=== PATIENT | female | born 1990 | race African-American/Black ===

== ENCOUNTER 2016-04-17 07:44 | Emergency (ER) | payer SELFPAY ==
[~2016-04-17] VITALS: Ht 162.6 cm; Wt 102.1 kg
[2016-04-17] MEDS ORDERED: ONDANSETRON ODT 4 MG TAB.RAPDIS PO ONE (08:30)
--- NOTE | 2016-04-17 08:43 | PHYS DOC ---
Adult General Chief Complaint Chief Complaint: ABDOMINAL PAIN HPI HPI Patient is a 25 year old female with no significant medical history who presents today with nausea vomiting diarrhea and generalized abdominal pain. Patient states this began 2 days ago. She states her boss will not give her allow her to take some time off to get well. She states she works at [employer]. She was in the room taking Yumbers off herself when I walked in. Review of Systems Review of Systems Constitutional: Denies fever or chills [] Eyes: Denies change in visual acuity, redness, or eye pain [] HENT: Denies nasal congestion or sore throat [] Respiratory: Denies cough or shortness of breath [] Cardiovascular: No additional information not addressed in HPI [] GI: generalized abdominal pain, nausea, vomiting,diarrhea [] : Denies dysuria or hematuria [] Musculoskeletal: Denies back pain or joint pain [] Integument: Denies rash or skin lesions [] Neurologic: Denies headache, focal weakness or sensory changes [] Endocrine: Denies polyuria or polydipsia [] Current Medications Current Medications Current Medications Medications (Trade) Dose Ordered Sig/Moises Start Time Stop Time Status Last Admin Dose Admin Ondansetron HCl (Zofran Odt) 4 mg 1X ONCE 04/17/16 08:30 04/17/16 08:48 DC 04/17/16 08:51 4 MG Allergies Allergies Allergies Coded Allergies Type Severity Reaction Last Updated Verified No Known Drug Allergies 04/17/16 No Physical Exam Physical Exam Constitutional: Well developed, well nourished, no acute distress, non-toxic appearance. [] HENT: Normocephalic, atraumatic, bilateral external ears normal, oropharynx moist, no oral exudates, nose normal. [] Eyes: PERRLA, EOMI, conjunctiva normal, no discharge. [] Neck: Normal range of motion, no tenderness, supple, no stridor. [] Cardiovascular:Heart rate regular rhythm, no murmur [] Lungs & Thorax: Bilateral breath sounds clear to auscultation [] Abdomen: Bowel sounds normal, soft, no tenderness, no masses, no pulsatile masses. [] Skin: Warm, dry, no erythema, no rash. [] Back: No tenderness, no CVA tenderness. [] Extremities: No tenderness, no cyanosis, no clubbing, ROM intact, no edema. [] Neurologic: Alert and oriented X 3, normal motor function, normal sensory function, no focal deficits noted. [] Psychologic: Affect normal, judgement normal, mood normal. [] Current Patient Data Vital Signs Vital Signs Date Time Temp Pulse Resp B/P Pulse Ox O2 Delivery O2 Flow Rate FiO2 04/17/16 08:44 97.7 74 16 174/68 98 Room Air 97.7 Lab Values Laboratory Tests Test 04/17/16 08:15 Urine Collection Type Void Urine Color Soledad Urine Clarity Clear Urine pH 6.0 Urine Specific [place] >=1.030 Urine Protein Negativemg/dL (NEG-TRACE) Urine Glucose (UA) Negativemg/dL (NEG) Urine Ketones (Stick) >=80mg/dL (NEG) Urine Blood Negative (NEG) Urine Nitrite Negative (NEG) Urine Bilirubin Small (NEG) Urine Urobilinogen Dipstick 1.0mg/dL (0.2 mg/dL) Urine Leukocyte Esterase Negative (NEG) Urine RBC Rare/HPF (0-2) Urine WBC Occ/HPF (0-4) Urine Squamous Epithelial Cells Few/LPF Urine Bacteria Few/HPF (0-FEW) Urine Mucus Mod/LPF EKG EKG [] Radiology/Procedures Radiology/Procedures [] Course & Med Decision Making Course & Med Decision Making Pertinent Labs and Imaging studies reviewed. (See chart for details) Patient is in the ED with complaints of vomiting and diarrhea. She was also concerned she could be , negative urine hCG, urine negative for UTI, Urine shows signs of dehydration. I went to give patient results, I could not find her, I highly suspect she has eloped. Dragon Disclaimer Dragon Disclaimer This electronic medical record was generated, in whole or in part, using a voice recognition dictation system. Departure Departure Impression: Primary Impression: Vomiting and diarrhea Disposition: 01 HOME, SELF-CARE Condition: STABLE Referrals: COLLIN FREEMAN MD see your doctor in one week Patient Instructions: Diarrhea, Nausea and Vomiting Additional Instructions: You were seen for vomiting and diarrhea. This is a viral illness typically. Push fluids. Maintain good hand hygiene, take the prescribed medicine as needed. Follow-up with your doctor in one week. Scripts Promethazine Hcl 25 Mg Tablet1 Tab PO PRN Q6HRS #20 TAB Prov:MUTUNGA,MAGALIS BOTTOM SPRAYER 04/17/16 MAGALIS WAYNE APRN Apr 17, 2016 08:43
[2016-04-17 08:44] VITALS: BP 174/68
[2016-04-17 08:46] LABS: BILIRUBIN,URINE SMALL (NEG); GLUCOSE,URINE NEGATIVE (NEG); NITRITE,URINE NEGATIVE (NEG); PROTEIN,URINE NEGATIVE (NEG-TRACE)
[2016-04-17 09:10] LABS: BACTERIA,URINE FEW /HPF (0-FEW); RBC,URINE RARE /HPF (0-2); SQUAMOUS EPITHELIAL CELL,UR FEW /LPF; WBC,URINE OCC /HPF (0-4)
[2016-04-17] MEDS ORDERED: PROM25TA10 PO (10:08)
== END 2016-04-17 10:15 | disposition home or self-care (01) ==
LOC: ER 09:07
DX: R11.2 Nausea with vomiting, unspecified (principal); R19.7 Diarrhea, unspecified
CPT/HCPCS: 81001; 81025; 99283; Q0162

== ENCOUNTER 2016-04-19 08:56 | Emergency (ER) | payer SELFPAY ==
[~2016-04-19] VITALS: Ht 162.6 cm; Wt 102.1 kg
[~2016-04-19 08:56] MED LIST: PROM25TA10 PO
[2016-04-19 08:57] VITALS: BP 101/53
--- NOTE | 2016-04-19 09:42 | PHYS DOC ---
Past Medical History Past Medical History: No Pertinent History Past Surgical History: No Surgical History Alcohol Use: None Drug Use: None Adult General Chief Complaint Chief Complaint: CHEST PAIN HPI HPI Patient is a 25 year old female presents emergency room via EMS transport with complaint of left-sided chest pain that began at approximately 845 this morning. Patient states that she just had a conversation with her employer about her status or returning to work after being off for nausea, vomiting and diarrhea. Patient states that she was informed by her boss that she may lose her job if she doesn't return to work for at least a work note. Approximate 5 minutes after that conversation, while watching a movie, she began to experience his pain. Patient states of the chest pain lasted about 10-15 minutes. She reported the pain was nonradiating. She denies any shortness of breath, nausea or vomiting. She denies any sweats or chills. Patient herself denies any history of heart or lung disease. She denies any history of heart or lung disease with primary relatives before the age of 30. She denies any history of blood clots or blood clotting disorders. She states she has no concerns for at this time. Patient denies any recent illness such as fevers, chills, cough or congestion. She was seen here a couple of days ago for the nausea, vomiting and diarrhea. Patient reports nausea and vomiting has subsided and that she only has diarrhea at this time. She reports 2-3 loose bowel movements a day that are nonblack and nonbloody. She denies any abdominal pain. Patient has been pain-free during time here in the emergency department. Review of Systems Review of Systems Constitutional: Denies fever or chills [] Eyes: Denies change in visual acuity, redness, or eye pain [] HENT: Denies nasal congestion or sore throat [] Respiratory: Denies cough or shortness of breath [] Cardiovascular: No additional information not addressed in HPI [] GI: Denies abdominal pain, nausea, vomiting, bloody stools or diarrhea [] : Denies dysuria or hematuria [] Musculoskeletal: Denies back pain or joint pain [] Integument: Denies rash or skin lesions [] Neurologic: Denies headache, focal weakness or sensory changes [] Endocrine: Denies polyuria or polydipsia [] Allergies Allergies Allergies Coded Allergies Type Severity Reaction Last Updated Verified No Known Drug Allergies 2/21/17 No Physical Exam Physical Exam Constitutional: Well developed, well nourished, no acute distress, non-toxic appearance. Patient is on a phone and which she is explaining to the individual on the other in that she will leave here and a couple minutes with a work note. She has been her several times how long it will take before she is discharged. Patient denies chest pain at this time. HENT: Normocephalic, atraumatic, bilateral external ears normal, oropharynx moist, no oral exudates, nose normal. [] Eyes: PERRLA, EOMI, conjunctiva normal, no discharge. [] Neck: Normal range of motion, no tenderness, supple, no stridor. Cardiovascular:Heart rate regular rhythm, no murmur. There is tenderness to palpation to the patient's left anterior chest wall without palpable defect, deformity, instability or crepitus. Lungs & Thorax: There is no respiratory distress or respiratory fatigue. Patient is able speak in full sentences. Lungs are clear to auscultation bilaterally with full chest excursion. Abdomen: Bowel sounds normal, soft, no tenderness, no masses, no pulsatile masses. [] Skin: Warm, dry, no erythema, no rash. [] Back: No tenderness, no CVA tenderness. [] Extremities: No tenderness, no cyanosis, no clubbing, ROM intact, no edema. [] Neurologic: Alert and oriented X 3, normal motor function, normal sensory function, no focal deficits noted. [] Psychologic: Affect normal, judgement normal, mood normal. [] Current Patient Data Vital Signs Vital Signs Date Time Temp Pulse Resp B/P Pulse Ox O2 Delivery O2 Flow Rate FiO2 04/19/16 08:57 98.7 69 13 101/53 98 Room Air 98.7 EKG EKG Twelve-lead EKG was performed at 0858: Normal sinus rhythm with a rate of 64 bpm. AL interval 0 182 ms with a QRS duration is 100 ms and a QT duration of 427 ms[address] There is no [address] elevation or depression. Radiology/Procedures Radiology/Procedures [] Course & Med Decision Making Course & Med Decision Making Upon physical exam and reviewing patient's history, patient has no evidence of ACS. Her EKG is normal. She is 25 years old without any history of pulmonary disease. She has no history or risk factors for acute coronary syndrome or coagulopathies. She has no primary relatives with a history of heart disease before the age of 50. Patient is safe to go home at this time and resume her full normal activities. Surya Disclaimer Surya Disclaimer This electronic medical record was generated, in whole or in part, using a voice recognition dictation system. Departure Departure Impression: Primary Impression: Chest pain due to psychological stress Disposition: HOME, SELF-CARE Condition: GOOD Referrals: NO PCP (PCP) Patient Instructions: Chest Wall Pain, [id number] Additional Instructions: 1. Your EKG today is normal. There is no physical evidence of insult to your heart or lungs. Your vital signs today here are normal and stable. 2. You're able to resume full activities as normal. This includes returning to work without any limitations. 3. You need a primary care doctor in which to follow-up and address any medical concerns that you may have. Use the pamphlet provided for assistance in doing this. VANNESA WITT Apr 19, 2016 09:41
--- NOTE | 2016-04-19 10:35 | EKG ---
[facility] [address] [place] [address] Test Date: 2016-04-19 Test Time: 08:58:08 Pat Name: NAT QUIROS Department: Room: Gender: F Product Safety Officer: : 1990 Requested By: FELICIA CURRY Order Number: [id number] Reading MD: Jenae Ledesma Measurements Intervals Chambers Rate: 64 P: 26 NH: 182 QRS: -5 QRSD: 100 T: 11 QT: 414 QTc: 427 Interpretive Statements SINUS RHYTHM LEFTWARD AXIS RI6.01 Unconfirmed report No previous ECG available for comparison Electronically Signed On 04-22-2016 20:02:[address] by Jenae Ledesma
== END 2016-04-19 09:49 | disposition home or self-care (01) ==
LOC: ER 08:56
DX: R07.9 Chest pain, unspecified (principal); Z73.3 Stress, not elsewhere classified
CPT/HCPCS: 93005; 99283-25; 99284-25

== ENCOUNTER 2016-04-27 21:30 | Emergency (ER) | payer SELFPAY ==
[~2016-04-27] VITALS: Ht 162.6 cm; Wt 99.8 kg
[2016-04-27 22:15] LABS: BILIRUBIN,URINE NEGATIVE (NEG); GLUCOSE,URINE NEGATIVE (NEG)
[2016-04-27 22:16] LABS: NITRITE,URINE NEGATIVE (NEG); PROTEIN,URINE NEGATIVE (NEG-TRACE)
[2016-04-27 22:28] LABS: NEG OBC SER NEG; POS OBC SER POS
[2016-04-27 22:30] LABS: CREATININE 0.9 mg/dL (0.6-1.0); GFR 92.3; POTASSIUM 3.8 mmol/L (3.5-5.1)
[2016-04-27] MEDS ORDERED: IV NORMAL SALINE 1000ML BAG 1,000 ML IV SCH (22:30)
[2016-04-27] MEDS ORDERED: KETOROLAC TROMETHAMINE 30 MG/ML SYRINGE. IV ONE (22:30)
[2016-04-27] MEDS ORDERED: PROCHLORPERAZINE 10 MG/2 ML VIAL. IV ONE (22:30)
[2016-04-27] MEDS ORDERED: ONDANSETRON PF 4 MG/2 ML VIAL. IV ONE (22:30)
--- NOTE | 2016-04-27 22:38 | PHYS DOC ---
Past Medical History Past Medical History: No Pertinent History Past Surgical History: No Surgical History Alcohol Use: None Drug Use: None Adult General Chief Complaint Chief Complaint: HEADACHE HPI HPI Patient is a 26 year old female who presents here today complaining of nausea vomiting diarrhea or headaches cough congestion has been going on now for approximately 4-5 days. This the patient's third visit to the ER secondary to similar symptoms. The patient presents to the ER today mainly because she is frustrated secondary to having to go to work while she is feeling sick. Patient reports that she is a full-time employee at [employer] and she works apparently 46 hours per week. Patient reports that she's been having nausea vomiting and extremely loose stools where she feels like she is losing control of her bowels secondary to watery green diarrhea. Patient reports her workplace would not allow her to take time off unless she has a note from a doctor. Patient reports last 2 times she was here she was only given 1 day off and she's been trying to struggle going to work last several days however she feels drained, dehydrated, and embarrassed and situation of having to go to work with as much diarrhea she is having. Patient was instructed to follow-up with her primary care physician however she reports she does not have insurance and that when he is not does not offer healthcare insurance to their full-time employees therefore she doesn' t know where to turn to. Parent denies any fevers shakes chills. No dysuria frequency or urgency. No history of hypertension diabetes liver longer kidney problems. No prior surgeries. She does smoke no alcohol or drugs. Her last menstrual period was yesterday. Patient is 3. Patient reports that she has diffuse abdominal cramping with diarrhea with decreased by mouth intake secondary to nausea. Patient's physical exam is unremarkable except for mild diffuse tenderness to palpation. No rebound or guarding. Normoactive bowel sounds. Patient's funduscopic exam was unremarkable. There was no evidence of papilledema. Patient has moist mucous membranes. Patient is very tearful in the room secondary to frustration with the situation that she is in. Patient does not appear to be dehydrated anyway as she is making lots of tears. This is a 26-year-old female who presents to the ER for the third time for similar complaints. Patient's main concern is having to go to work while she's having watery diarrhea at [employer]. Patient feels that she is not able to control her bowel movements secondary to help loosen watery her stools are. Patient is requesting that we assist with hydration assist her with her headache but mainly assist her with a work note for physician so that she can have a couple days off to get herself together. Patient is physical exam is currently unremarkable. Patient feels significant improvement after the IV fluids and pain medicines. Patient is requesting be discharged home hours she is asking that we give her medication Opera nausea and a work note. Patient be discharged home on Zofran, ibuprofen,. Review of Systems Review of Systems Constitutional: Denies fever or chills [] Eyes: Denies change in visual acuity, redness, or eye pain [] All other review systems are negative except as documented in the history of present illness portion. Current Medications Current Medications Current Medications Medications (Trade) Dose Ordered Sig/Moises Start Time Stop Time Status Last Admin Dose Admin Ketorolac Tromethamine (Toradol) 30 mg 1X ONCE 04/27/16 22:30 04/27/16 22:31 DC 04/27/16 22:37 30 MG Ondansetron HCl (Zofran) 4 mg 1X ONCE 04/27/16 22:30 04/27/16 22:31 DC 04/27/16 22:36 4 MG Prochlorperazine Edisylate (Compazine) 5 mg 1X ONCE 04/27/16 22:30 04/27/16 22:31 DC 04/27/16 22:36 5 MG Sodium Chloride (Iv Sodium Chloride 0.9% 1000ml Bag) 1,000 ml @ 1,000 mls/hr Q1H 04/27/16 22:30 04/27/16 23:29 DC 04/27/16 22:35 1,000 MLS/HR Allergies Allergies Allergies Coded Allergies Type Severity Reaction Last Updated Verified No Known Drug Allergies 04/17/16 No Physical Exam Physical Exam Repeat exam at 11:37 PM Constitutional: Well developed, well nourished, no acute distress, non-toxic appearance. [] HENT: Normocephalic, atraumatic, bilateral external ears normal, oropharynx moist, no oral exudates, nose normal. [] Eyes: PERRLA, EOMI, conjunctiva normal, no discharge. [] Neck: Normal range of motion, no tenderness, supple, no stridor. [] Cardiovascular:Heart rate regular rhythm, no murmur [] Lungs & Thorax: Bilateral breath sounds clear to auscultation [] Abdomen: Bowel sounds normal, soft, no tenderness, no masses, no pulsatile masses. [] Skin: Warm, dry, no erythema, no rash. [] Back: No tenderness, no CVA tenderness. [] Extremities: No tenderness, no cyanosis, no clubbing, ROM intact, no edema. [] Neurologic: Alert and oriented X 3, normal motor function, normal sensory function, no focal deficits noted. [] Psychologic: Affect normal, judgement normal, mood normal. [] Current Patient Data Vital Signs Vital Signs Date Time Temp Pulse Resp B/P Pulse Ox O2 Delivery O2 Flow Rate FiO2 04/27/16 21:55 98.4 69 26 150/75 100 Room Air 98.4 Lab Values Laboratory Tests Test 04/27/16 21:32 04/27/16 21:45 Urine Collection Type Unknown Urine Color Yellow Urine Clarity Clear Urine pH 8.0 Urine Specific [place] 1.015 Urine Protein Negativemg/dL (NEG-TRACE) Urine Glucose (UA) Negativemg/dL (NEG) Urine Ketones (Stick) Negativemg/dL (NEG) Urine Blood Large (NEG) Urine Nitrite Negative (NEG) Urine Bilirubin Negative (NEG) Urine Urobilinogen Dipstick 1.0mg/dL (0.2 mg/dL) Urine Leukocyte Esterase Negative (NEG) Urine RBC Occ/HPF (0-2) Urine WBC Occ/HPF (0-4) Urine Squamous Epithelial Cells Mod/LPF Urine Bacteria Few/HPF (0-FEW) Urine Mucus Slight/LPF POC Urine HCG, Qualitative Hcg negative (Negative) Sodium Level 143mmol/L (136-145) Potassium Level 3.8mmol/L (3.5-5.1) Chloride Level 106mmol/L (98-107) Carbon Dioxide Level 27mmol/L (21-32) Anion Gap 10 (6-14) Blood Urea Nitrogen 9mg/dL (7-20) Creatinine 0.9mg/dL (0.6-1.0) Estimated GFR (Cockcroft-Gault) 92.3 BUN/Creatinine Ratio 10 (6-20) Glucose Level 100mg/dL (70-99) H Calcium Level 9.0mg/dL (8.5-10.1) Total Bilirubin 0.5mg/dL (0.2-1.0) Aspartate Amino Transferase (AST) 26U/L (15-37) Alanine Aminotransferase (ALT) 30U/L (14-59) Alkaline Phosphatase 48U/L (46-116) Total Protein 7.1g/dL (6.4-8.2) Albumin 3.4g/dL (3.4-5.0) Albumin/Globulin Ratio 0.9 (1.0-1.7) L Lipase 97U/L (73-393) Serum Test, Qualitative Negative (NEG) Laboratory Tests 04/27/16 21:45 EKG EKG [] Radiology/Procedures Radiology/Procedures [] Course & Med Decision Making Course & Med Decision Making Pertinent Labs and Imaging studies reviewed. (See chart for details) [] Dragon Disclaimer Dragon Disclaimer This electronic medical record was generated, in whole or in part, using a voice recognition dictation system. Departure Departure Impression: Primary Impression: Vomiting and diarrhea Additional Impressions: Dehydration Headache Disposition: 01 HOME, SELF-CARE Condition: IMPROVED Referrals: NO PCP (PCP) Patient Instructions: Dehydration, Adult, Nausea and Vomiting, Viral Gastroenteritis, Vomiting and Diarrhea, Child 1 Year and Older Scripts Ondansetron (Zofran Odt)4 Mg Tab.rapdis1 Tab SL Q6HRS PRN NAUSEA #12 TAB Prov:DANI ESCUDERO MD 04/27/16 Ibuprofen 600 Mg [id number] Mg PO PRN Q6HRS PRN INFLAMMATION #30 TAB Prov:DANI ESCUDERO MD 04/27/16 Problem Qualifiers DANI ESCUDERO MD Apr 27, 2016 22:38
[2016-04-27 22:43] LABS: ALBUMIN 3.4 g/dL (3.4-5.0); ALBUMIN/GLOBULIN RATIO 0.9 (1.0-1.7); TOTAL BILIRUBIN 0.5 mg/dL (0.2-1.0); TOTAL PROTEIN 7.1 g/dL (6.4-8.2)
[2016-04-27 22:46] LABS: BACTERIA,URINE FEW /HPF (0-FEW); RBC,URINE OCC /HPF (0-2); SQUAMOUS EPITHELIAL CELL,UR MOD /LPF; WBC,URINE OCC /HPF (0-4)
[2016-04-27 23:35] VITALS: BP 115/68
[2016-04-27] MEDS ORDERED: IBUP-1007 PO (23:42)
[2016-04-27] MEDS ORDERED: ONDA4TAB10 SL (23:42)
== END 2016-04-27 23:53 | disposition home or self-care (01) ==
LOC: ER 21:30
DX: E86.0 Dehydration (principal); R51 Headache; F17.200 Nicotine dependence, unspecified, uncomplicated
CPT/HCPCS: 36415; 80053; 81001; 81025; 83690; 84703; 96361; 96374; 96375; 99284; J0780; J1885; J2405; J7030

== ENCOUNTER 2016-06-02 13:02 | Emergency (ER) | payer SELFPAY ==
[~2016-06-02] VITALS: Ht 162.6 cm; Wt 108.9 kg
[~2016-06-02 13:02] MED LIST changes: +IBUP-1007 PO; +ONDA4TAB10 SL
[2016-06-02 13:24] VITALS: BP 119/66
--- NOTE | 2016-06-02 14:50 | RAD ---
2 view CXR: Clinical indications: Chest pain starting 2 days ago.. Findings: No acute lung infiltrate or pleural effusion or pulmonary edema or lung mass or pneumothorax is seen. The heart size, pulmonary vasculature, mediastinum and both kathy are unremarkable. The osseous structures appear intact. Impression: No acute radiographic abnormality is seen.
[2016-06-02] MEDS ORDERED: PROAIR HFA8.5 GM INH (15:06)
[2016-06-02] MEDS ORDERED: PRED20TA PO (15:06)
--- NOTE | 2016-06-02 15:07 | PHYS DOC ---
Past Medical History Past Medical History: No Pertinent History Past Surgical History: No Surgical History Additional Information: 3 TO 4 CIGARETTES A DAY Alcohol Use: None Drug Use: None Adult General Chief Complaint Chief Complaint: CHEST WALL PAIN [facility] HPI Patient is a 26 year old female who presents with left-sided chest pain for one month. She reports the pain is mostly constant, however intermittently increases in intensity. She states that occasionally increasing her water and altering her diet to exclude foods that cause heartburn or helped the pain. She states it is worse with movement or deep breaths. She reports feeling frequent palpitations that cause her anxiety. The anxiety than increases her chest pain and shortness of breath. The patient has been seen here previously for similar pain. She denies any personal or family history of heart disease or coagulopathies. She does not have any risk factors for PE. The patient was previously instructed to follow-up with a primary care doctor. She does not currently have insurance and is unable to afford to see a specialist. She does not have a PCP. Review of Systems Review of Systems Constitutional: Denies fever or chills. [] Eyes: Denies change in visual acuity, redness, or eye pain. [] HENT: Denies ear pain, nasal congestion or sore throat. [] Respiratory: Reports productive cough and shortness of breath. Cardiovascular: Denies edema. Reports chest pain and palpitations. GI: Denies abdominal pain, nausea, vomiting, bloody stools or diarrhea. [] : Denies dysuria, hematuria or urinary frequency. [] Musculoskeletal: Denies back pain or joint pain. [] Integument: Denies rash or skin lesions. [] Neurologic: Denies headache, focal weakness or sensory changes. [] Endocrine: Denies polyuria or polydipsia. [] Psych: Denies anxiety or depression. [] All systems reviewed and negative unless otherwise stated in the HPI. Allergies Allergies Allergies Coded Allergies Type Severity Reaction Last Updated Verified No Known Drug Allergies 04/17/16 No Physical Exam Physical Exam Constitutional: Well developed, well nourished, no acute distress, non-toxic appearance. [] HENT: Normocephalic, atraumatic, oropharynx moist. [] Eyes: PERRLA, EOMI, conjunctiva normal, no discharge. [] Neck: Normal range of motion, no tenderness, supple, no stridor. [] Cardiovascular: Heart rate regular rhythm, no murmur. [] Lungs & Thorax: Bilateral breath sounds clear to auscultation without wheezes, rales, or rhonchi. No respiratory distress. The patient speaks in full sentences. There is tenderness to palpation over the left anterior chest wall. Abdomen: Bowel sounds normal, soft, no tenderness, no masses, no pulsatile masses. [] Skin: Warm, dry, no erythema, no rash. [] Back: No midline tenderness, no CVA tenderness. [] Extremities: No tenderness, ROM intact, no edema. Distal pulses equal bilaterally. [] Neurologic: Alert and oriented X 3, normal motor function, normal sensory function, no focal deficits noted. [] Psychologic: Affect normal, judgement normal, mood normal. [] Current Patient Data Vital Signs Vital Signs Date Time Temp Pulse Resp B/P Pulse Ox O2 Delivery O2 Flow Rate FiO2 06/02/16 13:24 97.9 87 20 119/66 97 Room Air 97.9 EKG EKG EKG at 1400. Heart rate 74 beats per minute. Sinus rhythm. No STEMI. Interpreted by Dr. Dorado. Radiology/Procedures Radiology/Procedures REASON: chest pain PROCEDURE: CHEST PA & LATERAL 2 view CXR: Clinical indications: Chest pain starting 2 days ago.. Findings: No acute lung infiltrate or pleural effusion or pulmonary edema or lung mass or pneumothorax is seen. The heart size, pulmonary vasculature, mediastinum and both kathy are unremarkable. The osseous structures appear intact. Impression: No acute radiographic abnormality is seen. Course & Med Decision Making Course & Med Decision Making Pertinent Labs and Imaging studies reviewed. (See chart for details) Patient is a 26-year-old female with no significant past medical history presents with 1 month of chest pain, palpitations, cough, and shortness of breath. She does not have any history of ACS or clotting disorders. She is PERC negative. Vital signs are stable in the emergency department. EKG does not show any acute ischemic changes. Chest x-ray is unremarkable. Patient is discharged home with prescription for prednisone and an albuterol inhaler. She is encouraged to pursue follow-up through [facility] or [facility], as she does not have medical insurance. Return precautions were discussed. She verbalizes understanding and agrees with plan. Surya Disclaimer Dragon Disclaimer This electronic medical record was generated, in whole or in part, using a voice recognition dictation system. Departure Departure Impression: Primary Impression: Chest pain Disposition: HOME, SELF-CARE Condition: STABLE Referrals: NO PCP (PCP) Patient Instructions: Chest Pain (Nonspecific), [id number] Additional Instructions: Your EKG and chest x-ray were normal today. Your pain does not appear to be due to a heart attack. Please take all of the prescribed medication to help decrease inflammation in your lungs. Use the prescribed inhaler as needed for cough or shortness of breath. Please follow-up with a primary care doctor through the clinics at [facility]. Return to the emergency department if you have a change in your pain, increased difficulty breathing, or other new or concerning symptoms. Scripts Albuterol Sulfate (Proair Hfa Inhaler)8.5 Gm [id number] Puff INH PRN Q6HRS PRN SHORTNESS OF BREATH #1 INHALER Prov:FELICIA GALINDO 06/02/16 Prednisone 20 Mg [id number] Mg PO DAILY 5 Days Prov:FELICIA GALINDO 06/02/16 Problem Qualifiers Primary Impression: Chest pain Chest pain type: unspecified Qualified Code: R07.9 - Chest pain, unspecified FELICIA GALINDO Jun 02, 2016 15:07
--- NOTE | 2016-06-03 12:27 | EKG ---
[facility] [address] [place] [address] Test Date: 2016-06-02 Test Time: 14:00:02 Pat Name: NAT QUIROS Department: Room: Gender: F [employer] Stack [employer] Developer: : 1990 Requested By: FELICIA GALINDO Order Number: [id number] Reading MD: Measurements Intervals [place] Rate: 74 P: 134 MO: 188 QRS: -173 QRSD: 104 T: 159 QT: 402 QTc: 447 Interpretive Statements SINUS RHYTHM ABNORMAL RIGHT SUPERIOR AXIS DEVIATION CONSIDER RIGHT VENTRICULAR HYPERTROPHY QRS(T) CONTOUR ABNORMALITY CONSISTENT WITH HIGH LATERAL MYOCARDIAL DAMAGE RI6.01 No previous ECG available for comparison
== END 2016-06-02 15:15 | disposition home or self-care (01) ==
LOC: ER 13:02
DX: R07.9 Chest pain, unspecified (principal); R12 Heartburn; R05 Cough; F17.210 Nicotine dependence, cigarettes, uncomplicated
CPT/HCPCS: 71020; 93005; 99284-25

== ENCOUNTER 2018-02-26 11:58 | Emergency (ER) | payer SELFPAY ==
[~2018-02-26] VITALS: Ht 162.6 cm; Wt 81.6 kg
[~2018-02-26 11:58] MED LIST changes: +ALBU2.5V8 INH; +PRED20TA PO
[2018-02-26 12:20] VITALS: BP 99/52
[2018-02-26 13:27] LABS: BILIRUBIN,URINE NEGATIVE (NEG); CLARITY,URINE CLEAR; COLOR,URINE YELLOW; NITRITE,URINE NEGATIVE (NEG); PH,URINE 7.5; PROTEIN,URINE NEGATIVE (NEG-TRACE); UROBILINOGEN,URINE 0.2 mg/dL (0.2 mg/dL)
--- NOTE | 2018-02-26 13:28 | PHYS DOC ---
Past Medical History Past Medical History: No Pertinent History Past Surgical History: No Surgical History Alcohol Use: None Drug Use: None Adult General Chief Complaint Chief Complaint: NAUSEA/VOMITING/DIARRHA HPI HPI 27 year old female presents to ER with complaints of 2 week history of intermittent nausea and vomiting with concerns for . Patient states her LMP was before Thanksgiving. Patient denies control or condoms use. Patient denies urinary symptoms, abdominal pain, fever or chills, or vaginal symptoms. Review of Systems Review of Systems Constitutional: Denies fever or chills [] Eyes: Denies change in visual acuity, redness, or eye pain [] HENT: Denies nasal congestion or sore throat [] Respiratory: Denies cough or shortness of breath [] Cardiovascular: No additional information not addressed in HPI [] GI: Denies abdominal pain, nausea, vomiting, bloody stools or diarrhea [] : Denies dysuria or hematuria [] Musculoskeletal: Denies back pain or joint pain [] Integument: Denies rash or skin lesions [] Neurologic: Denies headache, focal weakness or sensory changes [] Endocrine: Denies polyuria or polydipsia [] All other systems were reviewed and found to be within normal limits, except as documented in this note. Allergies Allergies Allergies Coded Allergies Type Severity Reaction Last Updated Verified No Known Drug Allergies 04/17/16 No Physical Exam Physical Exam Constitutional: Well developed, well nourished, no acute distress, non-toxic appearance. [] HENT: Normocephalic, atraumatic, bilateral external ears normal, oropharynx moist, no oral exudates, nose normal. [] Eyes: PERRLA, EOMI, conjunctiva normal, no discharge. [] Neck: Normal range of motion, no tenderness, supple, no stridor. [] Cardiovascular:Heart rate regular rhythm, no murmur [] Lungs & Thorax: Bilateral breath sounds clear to auscultation [] Abdomen: Bowel sounds normal, soft, no tenderness, no masses, no pulsatile masses. [] Skin: Warm, dry, no erythema, no rash. [] Back: No tenderness, no CVA tenderness. [] Extremities: No tenderness, no cyanosis, no clubbing, ROM intact, no edema. [] Neurologic: Alert and oriented X 3, normal motor function, normal sensory function, no focal deficits noted. [] Psychologic: Affect normal, judgement normal, mood normal. [] Current Patient Data Vital Signs Vital Signs Date Time Temp Pulse Resp B/P (MAP) Pulse Ox O2 Delivery O2 Flow Rate FiO2 02/26/18 12:20 97.8 70 18 99/52 (68) 100 Room Air 97.8 Lab Values Laboratory Tests Test 02/26/18 12:25 02/26/18 12:34 Urine Collection Type Unknown Urine Color Yellow Urine Clarity Clear Urine pH 7.5 Urine Specific [place] 1.020 Urine Protein Negative mg/dL (NEG-TRACE) Urine Glucose (UA) Negative mg/dL (NEG) Urine Ketones (Stick) Negative mg/dL (NEG) Urine Blood Negative (NEG) Urine Nitrite Negative (NEG) Urine Bilirubin Negative (NEG) Urine Urobilinogen Dipstick 0.2 mg/dL (0.2 mg/dL) Urine Leukocyte Esterase Small (NEG) Urine RBC 0 /HPF (0-2) Urine WBC 1-4 /HPF (0-4) Urine Squamous Epithelial Cells Mod /LPF Urine Bacteria Moderate /HPF (0-FEW) Urine Mucus Slight /LPF POC Urine HCG, Qualitative Hcg positive (Negative) EKG EKG [] Radiology/Procedures Radiology/Procedures [] Course & Med Decision Making Course & Med Decision Making Pertinent Labs and Imaging studies reviewed. (See chart for details) 1325: Patient came to the ER for complaints of intermittent nausea and vomiting for the past couple weeks and had concerns for . Patient's UCG was positive. This was discussed with patient. No abdominal pain, vaginal symptoms or bleeding, or other concerns patient is not wanting any additional tests done. UA is pending and wants that results patient is comfortable with home discharge without any further care or monitoring. Patient reports she does have boyfriend who is supportive and is the father of her 8-year-old and 7-month- old. This would make patient 4 para 3-patient reports she had 6-week- old son who years ago. Dragon Disclaimer Dragon Disclaimer This electronic medical record was generated, in whole or in part, using a voice recognition dictation system. Departure Departure Impression: Primary Impression: Additional Impression: Nausea and vomiting in Disposition: 01 HOME, SELF-CARE Condition: STABLE Referrals: NO PCP (PCP) KRISTINE GONSALES Jr, MD Patient Instructions: ABCs of , Nausea and Vomiting Additional Instructions: Drink plenty of fluids and eat well-balanced meal. You can take over-the- counter vitamins as directed on container. You need to call as soon as possible and schedule a follow-up with [facility] for further care during her . Problem Qualifiers MONICA MACIAS APRN Feb 26, 2018 13:28
[2018-02-26 13:47] LABS: SQUAMOUS EPITHELIAL CELL,UR MOD /LPF
[2018-02-26 13:48] LABS: BACTERIA,URINE MODERATE /HPF (0-FEW); RBC,URINE 0 /HPF (0-2)
== END 2018-02-26 15:08 | disposition home or self-care (01) ==
LOC: ER 11:58
DX: R11.2 Nausea with vomiting, unspecified (principal); Z33.1 Pregnant state, incidental
CPT/HCPCS: 81001; 81025; 87086; 99283